=== PATIENT | male | born 1960 | race Caucasian/White ===

== ENCOUNTER 2017-02-23 17:27 | Day surgery (SDC) | payer BC, OTHER ==
--- NOTE | 2017-02-23 18:45 | EDM.PDOC ---
ED HPI GENERAL MEDICAL PROBLEM - General Chief Complaint: Abdominal Pain Stated Complaint: RT ABDOMINAL PAIN Time Seen by Provider: 02/23/17 18:15 Source of Information: Reports: Patient, Family History Limitations: Reports: No Limitations - History of Present Illness INITIAL COMMENTS - FREE TEXT/NARRATIVE: HISTORY AND PHYSICAL: History of present illness: [Patient comes to the emergency room complaining of right lower quadrant abdominal pain. States the pain woke him up at 1:00 this morning and has been gradually worsening throughout the day. Has had nausea throughout the day and been afraid to eat anything because he didn't want to vomit. Denies fever or chills. No sore throat or cough. No shortness of breath, chest pain, difficulty breathing. Has also had some abdominal discomfort around his bellybutton but is primarily to his right lower quadrant. Denies any burning with urination and hematuria. No change in his bowel or bladder. No diarrhea or constipation. Complained of pain while riding as a passenger in the car while his was driving, the bumps in the road increased the pain to his right lower abdomen. Has not taken any medication for his symptoms.] Review of systems: As per history of present illness and below otherwise all systems reviewed and negative. Past medical history: As per history of present illness and as reviewed below otherwise noncontributory. Surgical history: As per history of present illness and as reviewed below otherwise noncontributory. Social history: No reported history of drug or alcohol abuse. Family history: As per history of present illness and as reviewed below otherwise noncontributory. Physical exam: General: Well developed, well nourished male in no acute distress. HEENT: Atraumatic, normocephalic. Oral mucous membranes are pink and moist. Neck supple, no lymphadenopathy.. Lungs: Clear to auscultation, breath sounds equal bilaterally. Heart: S1S2, regular rate and rhythm. Abdomen: Bowel sounds are normoactive throughout. Abdomen is obese, which makes examination suboptimal. Mildly distended. Tender w/ palpation over RLQ. Otherwise, nontender. + rebound. Negative for costovertebral tenderness. Pelvis: Stable nontender. Genitourinary: Deferred. Rectal: Deferred. Extremities: Atraumatic, negative for cords or calf pain. No cyanosis or edema to feet or lower legs. Neurovascular unremarkable. Neuro: Awake, alert, oriented. Motor and sensory unremarkable throughout. Exam nonfocal. Diagnostics: [CBC, CMP, amylase, lipase, UA, lactic acid, CT abdomen and pelvis with contrast ] Therapeutics: [1 liter NS ] Impression: [acute appendicitis] Plan: [Patient continues to deny any significant pain and declined medication. White blood cell 14.10. Lactate 0.9. UA and CMP is normal. CT abd and pelvis w/ contrast shows an acute appendicitis w/o perforation or abscess formation. Dr. Sofia evaluates patient in ER and patient is in agreement to have surgery. Patient' s care turned over to Dr. Sofia. Definitive disposition and diagnosis as appropriate pending reevaluation and review of above. Right Lower Abdominal Pain Score (Numeric/FACES): 7 - Related Data Allergies Allergy/AdvReac Type Severity Reaction Status Date / Time No Known Allergies Allergy Verified 02/23/17 17:34 Home Meds: Home Meds . [No Known Home Meds] 02/23/17 [History] Past Medical History Respiratory History: Reports: Sleep Apnea Social & Family History - Family History Family Medical History: Noncontributory - Tobacco Use Smoking Status *Q: Former Smoker Years of Tobacco use: 25 Used Tobacco, but Quit: Yes Month Tobacco Last Used: December 2015 - Caffeine Use Caffeine Use: Reports: None - Recreational Drug Use Recreational Drug Use: No ED ROS GENERAL - Review of Systems Review Of Systems: ROS reveals no pertinent complaints other than HPI. ED EXAM, GI/ABD - Physical Exam Exam: See Below Course - Vital Signs Last Recorded V/S: Last Vital Signs Temp 98.1 F 02/23/17 20:25 Pulse 68 02/23/17 20:25 Resp 18 02/23/17 20:25 BP 132/74 02/23/17 20:25 Pulse Ox 97 02/23/17 20:25 - Orders/Labs/Meds Orders: Active Orders 24 hr Category Date Time Status Patient Status [ADT] Stat ADT 02/23/17 23:46 Ordered Abdomen Pelvis w Cont [CT] Stat Exams 02/23/17 21:03 Taken Labs: Laboratory Tests 02/23/17 02/23/17 02/23/17 Range/Units 18:25 18:51 18:51 WBC 14.10 H (4.0-11.0) K/uL RBC 5.05 (4.50-5.90) M/uL Hgb 14.0 (13.0-17.0) g/dL Hct 41.9 (38.0-50.0) % MCV 83.0 (80.0-98.0) fL MCH 27.7 (27.0-32.0) pg MCHC 33.4 (31.0-37.0) g/dL RDW Std Deviation 41.8 (28.0-62.0) fl RDW Coeff of Sandra 14 (11.0-15.0) % Plt Count 242 (150-400) K/uL MPV 9.50 (7.40-12.00) fL Neut % (Auto) 84.4 H (48.0-80.0) % Lymph % (Auto) 9.8 L (16.0-40.0) % [place] % (Auto) 5.5 (0.0-15.0) % Eos % (Auto) 0.2 (0.0-7.0) % Baso % (Auto) 0.1 (0.0-1.5) % Neut # (Auto) 11.9 H (1.4-5.7) K/uL Lymph # (Auto) 1.4 (0.6-2.4) K/uL [place] # (Auto) 0.8 (0.0-0.8) K/uL Eos # (Auto) 0.0 (0.0-0.7) K/uL Baso # (Auto) 0.0 (0.0-0.1) K/uL Nucleated RBC % 0.0 /100WBC Nucleated RBCs # 0 K/uL Lactate 0.9 (0.20-2.00) mmol/L Sodium (136-146) mmol/L Potassium (3.5-5.1) mmol/L Chloride (98-110) mmol/L Carbon Dioxide (21-31) mmol/L BUN (6.0-23.0) mg/dL Creatinine (0.6-1.5) mg/dL Est Cr Clr Drug Dosing mL/min Estimated GFR (MDRD) ml/min Glucose (60-110) mg/dL Calcium (8.8-10.8) mg/dL Total Bilirubin (0.1-1.5) mg/dL AST (5-40) IU/L ALT (8-54) IU/L Alkaline Phosphatase (40-150) Total Protein (6.0-8.0) g/dL Albumin (3.5-5.0) g/dL Globulin (2.0-3.5) g/dL Albumin/Globulin Ratio (1.3-2.8) Amylase (10-90) U/L Lipase (7-80) U/L Urine Color YELLOW Urine Appearance CLEAR Urine pH 7.0 (5.0-8.0) Ur Specific [place] 1.020 (1.001-1.035) Urine Protein NEGATIVE (NEGATIVE) mg/dL Urine Glucose (UA) NEGATIVE (NEGATIVE) mg/dL Urine Ketones 15 H (NEGATIVE) mg/dL Urine Occult Blood NEGATIVE (NEGATIVE) Urine Nitrite NEGATIVE (NEGATIVE) Urine Bilirubin NEGATIVE (NEGATIVE) Urine Urobilinogen 1.0 (<2.0) EU/dL Ur Leukocyte Esterase NEGATIVE (NEGATIVE) Urine RBC NONE SEEN (0-2/HPF) Urine WBC 0-1 (0-5/HPF) Ur Epithelial Cells RARE (NONE-FEW) Amorphous Sediment RARE (NEGATIVE) Urine Bacteria RARE (NEGATIVE) 02/23/17 Range/Units 18:51 WBC (4.0-11.0) K/uL RBC (4.50-5.90) M/uL Hgb (13.0-17.0) g/dL Hct (38.0-50.0) % MCV (80.0-98.0) fL MCH (27.0-32.0) pg MCHC (31.0-37.0) g/dL RDW Std Deviation (28.0-62.0) fl RDW Coeff of Sandra (11.0-15.0) % Plt Count (150-400) K/uL MPV (7.40-12.00) fL Neut % (Auto) (48.0-80.0) % Lymph % (Auto) (16.0-40.0) % [place] % (Auto) (0.0-15.0) % Eos % (Auto) (0.0-7.0) % Baso % (Auto) (0.0-1.5) % Neut # (Auto) (1.4-5.7) K/uL Lymph # (Auto) (0.6-2.4) K/uL [place] # (Auto) (0.0-0.8) K/uL Eos # (Auto) (0.0-0.7) K/uL Baso # (Auto) (0.0-0.1) K/uL Nucleated RBC % /100WBC Nucleated RBCs # K/uL Lactate (0.20-2.00) mmol/L Sodium 138 (136-146) mmol/L Potassium 4.0 (3.5-5.1) mmol/L Chloride 106 (98-110) mmol/L Carbon Dioxide 23 (21-31) mmol/L BUN 14 (6.0-23.0) mg/dL Creatinine 0.9 (0.6-1.5) mg/dL Est Cr Clr Drug Dosing 96.88 mL/min Estimated GFR (MDRD) > 60.0 ml/min Glucose 111 H (60-110) mg/dL Calcium 9.1 (8.8-10.8) mg/dL Total Bilirubin 0.7 (0.1-1.5) mg/dL AST 22 (5-40) IU/L ALT 36 (8-54) IU/L Alkaline Phosphatase 87 (40-150) Total Protein 7.1 (6.0-8.0) g/dL Albumin 4.1 (3.5-5.0) g/dL Globulin 3.0 (2.0-3.5) g/dL Albumin/Globulin Ratio 1.4 (1.3-2.8) Amylase 42 (10-90) U/L Lipase 13 (7-80) U/L Urine Color Urine Appearance Urine pH (5.0-8.0) Ur Specific [place] (1.001-1.035) Urine Protein (NEGATIVE) mg/dL Urine Glucose (UA) (NEGATIVE) mg/dL Urine Ketones (NEGATIVE) mg/dL Urine Occult Blood (NEGATIVE) Urine Nitrite (NEGATIVE) Urine Bilirubin (NEGATIVE) Urine Urobilinogen (<2.0) EU/dL Ur Leukocyte Esterase (NEGATIVE) Urine RBC (0-2/HPF) Urine WBC (0-5/HPF) Ur Epithelial Cells (NONE-FEW) Amorphous Sediment (NEGATIVE) Urine Bacteria (NEGATIVE) Meds: Medications Discontinued Medications Generic Name Dose Route Start Last Admin Trade Name Freq PRN Reason Stop Dose Admin Iopamidol 100 ml 02/23/17 21:17 02/23/17 21:27 Isovue Multipack-370 (76%) IVPUSH 02/23/17 21:18 100 ml ONETIME STA Administration Departure - Departure Time of Disposition: 23:50 Disposition: Still A Patient 30 Condition: Good Clinical Impression: Appendicitis - Discharge Information - My Orders Last 24 Hours: My Active Orders 02/23/17 21:03 Abdomen Pelvis w Cont [CT] Stat 02/23/17 23:46 Patient Status [ADT] Stat - Assessment/Plan Last 24 Hours: My Active Orders 02/23/17 21:03 Abdomen Pelvis w Cont [CT] Stat 02/23/17 23:46 Patient Status [ADT] Stat
[2017-02-23 19:21] LABS: CHLORIDE,CL 106 mmol/L (98-110); SODIUM,NA 138 mmol/L (136-146)
[2017-02-23] MEDS ORDERED: Iopamidol 755 MG/ML 500 ML Multipack Bottle IVPUSH STA (21:17)
[2017-02-23] MEDS ORDERED: cefOXitin 2 GM in Premix Bag 1 BAG IV ONE (23:54)
[2017-02-23] MEDS ORDERED: Lactated Ringers 1,000 ML IV SCH (23:57)
--- NOTE | 2017-02-24 | PCM.SN ---
- Free Text/Narrative Note: Long discussion w pt re open vs lap appendectomy; pt decided to have surgery here; pt have been told, there is a hi chance of open appendectomy for him because of his bmi of 47.3, and also his 27 pack years of smoking, quit last year, he may not be able to extubate right after surgery; pt voiced understanding, and proceed; other risks and benefits, bleeding/infection/damage to nearby organs; pt concurs and proceed with surgery
[2017-02-24] MEDS ORDERED: Bupivacaine 0.25%/EPINEPHrine 1:200,000 10 ML SDV ONE (00:28)
--- NOTE | 2017-02-24 00:28 | PCM.PREANE ---
Preanesthetic Assessment - Anesthesia/Transfusion/Family Hx Anesthesia History: No Prior Anesthesia Family History of Anesthesia Reaction: No Transfusion History: No Prior Transfusion(s) - Review of Systems General: Fever, Fatigue, Other (abdominal pain) Pulmonary: No Symptoms Cardiovascular: No Symptoms Gastrointestinal: No Symptoms Neurological: No Symptoms Other: Reports: None - Physical Assessment NPO Status Date: 02/23/17 NPO Status Time: 18:00 (water - last food 0600) O2 Sat by Pulse Oximetry: 95 Respiratory Rate: 20 Vital Signs: Last Vital Signs Temp 98.5 F 02/24/17 00:18 Pulse 66 02/24/17 00:18 Resp 20 02/24/17 00:18 BP 116/63 02/24/17 00:18 Pulse Ox 95 02/24/17 00:18 Height: 5 ft 10 in Weight: 330 lb ASA Class: 3 Mental Status: Alert & Oriented x3 Airway Class: Mallampati = 2 Dentition: Reports: Missing Tooth/Teeth (upper x2) Thyro-Mental Finger Breadths: 3 Mouth Opening Finger Breadths: 3 (narrow mouth) ROM/Head Extension: Limited/Partial (fat pad behind neck limits extension) Lungs: Clear to Auscultation, Normal Respiratory Effort Cardiovascular: Regular Rate, Regular Rhythm - Lab Values: Laboratory Last Values WBC 14.10 K/uL (4.0-11.0) H 02/23/17 18:51 RBC 5.05 M/uL (4.50-5.90) 02/23/17 18:51 Hgb 14.0 g/dL (13.0-17.0) 02/23/17 18:51 Hct 41.9 % (38.0-50.0) 02/23/17 18:51 MCV 83.0 fL (80.0-98.0) 02/23/17 18:51 MCH 27.7 pg (27.0-32.0) 02/23/17 18:51 MCHC 33.4 g/dL (31.0-37.0) 02/23/17 18:51 RDW Std Deviation 41.8 fl (28.0-62.0) 02/23/17 18:51 RDW Coeff of Sandra 14 % (11.0-15.0) 02/23/17 18:51 Plt Count 242 K/uL (150-400) 02/23/17 18:51 MPV 9.50 fL (7.40-12.00) 02/23/17 18:51 Neut % (Auto) 84.4 % (48.0-80.0) H 02/23/17 18:51 Lymph % (Auto) 9.8 % (16.0-40.0) L 02/23/17 18:51 [place] % (Auto) 5.5 % (0.0-15.0) 02/23/17 18:51 Eos % (Auto) 0.2 % (0.0-7.0) 02/23/17 18:51 Baso % (Auto) 0.1 % (0.0-1.5) 02/23/17 18:51 Neut # (Auto) 11.9 K/uL (1.4-5.7) H 02/23/17 18:51 Lymph # (Auto) 1.4 K/uL (0.6-2.4) 02/23/17 18:51 [place] # (Auto) 0.8 K/uL (0.0-0.8) 02/23/17 18:51 Eos # (Auto) 0.0 K/uL (0.0-0.7) 02/23/17 18:51 Baso # (Auto) 0.0 K/uL (0.0-0.1) 02/23/17 18:51 Nucleated RBC % 0.0 /100WBC 02/23/17 18:51 Nucleated RBCs # 0 K/uL 02/23/17 18:51 Lactate 0.9 mmol/L (0.20-2.00) 02/23/17 18:51 Sodium 138 mmol/L (136-146) 02/23/17 18:51 Potassium 4.0 mmol/L (3.5-5.1) 02/23/17 18:51 Chloride 106 mmol/L (98-110) 02/23/17 18:51 Carbon Dioxide 23 mmol/L (21-31) 02/23/17 18:51 BUN 14 mg/dL (6.0-23.0) 02/23/17 18:51 Creatinine 0.9 mg/dL (0.6-1.5) 02/23/17 18:51 Est Cr Clr Drug Dosing 96.88 mL/min 02/23/17 18:51 Estimated GFR (MDRD) > 60.0 ml/min 02/23/17 18:51 Glucose 111 mg/dL (60-110) H 02/23/17 18:51 Calcium 9.1 mg/dL (8.8-10.8) 02/23/17 18:51 Total Bilirubin 0.7 mg/dL (0.1-1.5) 02/23/17 18:51 AST 22 IU/L (5-40) 02/23/17 18:51 ALT 36 IU/L (8-54) 02/23/17 18:51 Alkaline Phosphatase 87 (40-150) 02/23/17 18:51 Total Protein 7.1 g/dL (6.0-8.0) 02/23/17 18:51 Albumin 4.1 g/dL (3.5-5.0) 02/23/17 18:51 Globulin 3.0 g/dL (2.0-3.5) 02/23/17 18:51 Albumin/Globulin Ratio 1.4 (1.3-2.8) 02/23/17 18:51 Amylase 42 U/L (10-90) 02/23/17 18:51 Lipase 13 U/L (7-80) 02/23/17 18:51 Urine Color YELLOW 02/23/17 18:25 Urine Appearance CLEAR 02/23/17 18:25 Urine pH 7.0 (5.0-8.0) 02/23/17 18:25 Ur Specific [place] 1.020 (1.001-1.035) 02/23/17 18:25 Urine Protein NEGATIVE mg/dL (NEGATIVE) 02/23/17 18:25 Urine Glucose (UA) NEGATIVE mg/dL (NEGATIVE) 02/23/17 18:25 Urine Ketones 15 mg/dL (NEGATIVE) H 02/23/17 18:25 Urine Occult Blood NEGATIVE (NEGATIVE) 02/23/17 18:25 Urine Nitrite NEGATIVE (NEGATIVE) 02/23/17 18:25 Urine Bilirubin NEGATIVE (NEGATIVE) 02/23/17 18:25 Urine Urobilinogen 1.0 EU/dL (<2.0) 02/23/17 18:25 Ur Leukocyte Esterase NEGATIVE (NEGATIVE) 02/23/17 18:25 Urine RBC NONE SEEN (0-2/HPF) 02/23/17 18:25 Urine WBC 0-1 (0-5/HPF) 02/23/17 18:25 Ur Epithelial Cells RARE (NONE-FEW) 02/23/17 18:25 Amorphous Sediment RARE (NEGATIVE) 02/23/17 18:25 Urine Bacteria RARE (NEGATIVE) 02/23/17 18:25 - Allergies Allergies/Adverse Reactions: Allergies Allergy/AdvReac Type Severity Reaction Status Date / Time No Known Allergies Allergy Verified 02/23/17 17:34 - Blood Blood Available: No Product(s) Available: None - Anesthesia Plan Free Text/Narrative:: GETA - Acknowledgements Anesthesia Type Planned: General Anesthesia Pt an Appropriate Candidate for the Planned Anesthesia: Yes Alternatives and Risks of Anesthesia Discussed w Pt/Guardian: Yes Pt/Guardian Understands and Agrees with Anesthesia Plan: Yes PreAnesthesia Questionnaire Respiratory History: Reports: Sleep Apnea (has been wearing CPAP for last 6 months) Musculoskeletal History: Reports: Other (See Below) (Back pain) Endocrine/Metabolic History: Reports: Obesity/BMI 30+ - SUBSTANCE USE Smoking Status *Q: Former Smoker (quit 1 year ago) Recreational Drug Use History: No - HOME MEDS Home Medications: Home Meds . [No Known Home Meds] 02/23/17 [History] - CURRENT (IN HOUSE) MEDS Current Meds: Current Medications Lactated Ringer's (Ringers, Lactated) 1,000 mls @ 125 mls/hr IV ASDIRECTED CORDELL Discontinued Medications Cefoxitin Sodium 2 gm/ Premix 50 mls @ 100 mls/hr IV ONETIME ONE Stop: 02/24/17 00:23 Iopamidol (Isovue Multipack-370 (76%)) 100 ml IVPUSH ONETIME STA Stop: 02/23/17 21:18 Last Admin: 02/23/17 21:27 Dose: 100 ml
[2017-02-24] MEDS ORDERED: Propofol 200 MG/20 ML SDV ONE (00:37)
[2017-02-24] MEDS ORDERED: Lidocaine 2% 5 ML SDV ONE (00:37)
[2017-02-24] MEDS ORDERED: Ondansetron 4 MG/2 ML SDV ONE (00:37)
[2017-02-24] MEDS ORDERED: Midazolam 1 MG/ML 2 ML SDV ONE (00:37)
[2017-02-24] MEDS ORDERED: fentaNYL 250 MCG/5 ML SDV ONE (00:37)
[2017-02-24] MEDS ORDERED: Succinylcholine/Normal Saline 200 MG/10 ML Syringe ONE (00:39)
[2017-02-24] MEDS ORDERED: Phenylephrine/Normal Saline 100 MCG/ML 10 ML Syringe ONE (01:26)
[2017-02-24] MEDS ORDERED: Ketorolac 30 MG/ML SDV ONE (02:29)
[2017-02-24] MEDS ORDERED: Octyl 2-Cyanoacrylate 1 Tube ONE (02:32)
[2017-02-24] MEDS ORDERED: Neostigmine Methylsulfate 1 MG/ML 5 ML Syringe ONE (02:32)
--- NOTE | 2017-02-24 02:56 | PCM.OPNOTE ---
- General Post-Op/Procedure Note Date of Surgery/Procedure: 02/24/17 Operative Procedure(s): lap appendectomy Findings: appendicitis suppurativa, no gross perforation; [id number] Pre Op Diagnosis: acute appendicitis Post-Op Diagnosis: Same Anesthesia Technique: General ET Tube Primary Surgeon: Ronnie Sofia Pathology: sent Complications: None Condition: Fair
[2017-02-24] MEDS ORDERED: Ondansetron 4 MG/2 ML SDV IVPUSH PRN (02:58)
[2017-02-24] MEDS ORDERED: Acetaminophen/oxyCODONE 325-7.5 MG Tab PO PRN (02:58)
[2017-02-24] MEDS ORDERED: Lactated Ringers 1,000 ML IV SCH (03:00)
--- NOTE | 2017-02-24 03:14 | PCM.POSTAN ---
POST ANESTHESIA ASSESSMENT - MENTAL STATUS Mental Status: Alert, Oriented - VITAL SIGNS Pulse Rate: 66 SaO2: 93 Blood Pressure: 144/74 - RESPIRATORY Respiratory Status: Respiratory Rate WNL, Airway Patent, O2 Saturation Stable, Supplemental Oxygen - CARDIOVASCULAR CV Status: Pulse Rate WNL, Blood Pressure Stable - GASTROINTESTINAL GI Status: No Symptoms - PAIN Pain Score: 0 - POST OP HYDRATION Hydration Status: Adequate & Stable - OBSERVATIONS Free Text/Narrative:: Pt awake and alert with CPAP with settings of presure: 8 and FiO2: 50%. Pt nods that he is comfortable. VSS. No nausea at this time.
--- NOTE | 2017-02-24 03:41 | OR ---
SURGEON: Ronnie Sofia MD DATE OF PROCEDURE: 02/24/2017 PREOPERATIVE DIAGNOSIS: Acute appendicitis. POSTOPERATIVE DIAGNOSIS: Acute appendicitis. PROCEDURE PERFORMED: Laparoscopic appendectomy. COMPLICATIONS: None. FINDINGS: The patient is with BMI of 47.3 and weight 350 pounds, which makes the surgery quite challenging and fortunately, his subcutaneous fat is very little, so trocar is long enough. Appendicitis suppurativa and foul purulent material and not grossly ruptured. Peritoneal fluid is pretty yellow and green consistent with possible infection from the appendicitis, and the patient has bilateral inguinal hernia and also umbilical hernia from CAT scan. DESCRIPTION OF PROCEDURE: The patient was taken to the operating room and placed in the supine position. Following induction of general endotracheal anesthesia, the patient's abdomen was prepped and draped in the sterile fashion. A time-out has been called. The patient was identified. The procedure was identified. The antibiotics were identified. The procedure then proceeded. The abdomen was prepped and draped in a standard fashion. After assessment of appropriate landmarks, a 12 millimeter trocar was inserted supraumbilically using Optiview and pneumoperitoneum was then achieved. This was followed with placement of 5 millimeter port in the right upper quadrant and another 5 millimeter port infraumbilically. The camera was inserted supraumbilical site and two laparoscopic Natasha retractors were then inserted through the other two sites. Following the cecum, the appendix was located. The appendix was then lifted up, and using a GI stapler the appendix was amputated at the base. And using the GI stapler, the mesoappendix was then amputated. The appendix was retrieved by an endoscopic bag and sent for pathologist. This was then followed by re-insertion of the camera to examine the staple line, and hemostasis. The trocars were then removed. The umbilical site was closed with 2-0 Vicryl deep stitch and 4 -0 Vicryl and dermabond; the other 2 5 mm port sites were closed with 4-0 Vicryl and dermabond. The patient was then awakened, extubated, and transferred to the recovery room in hemodynamically stable condition. Prior to closing, sponge count and instrument count was correct. Dr. Sofia was present throughout the whole procedure. INTRAOPERATIVE FINDINGS: The patient is with BMI of 47.3 and weight 350 pounds, which makes the surgery quite challenging and fortunately, his subcutaneous fat was very little so trocar was long enough. Appendicitis suppurativa and foul purulent material and not grossly ruptured. Peritoneal fluid was pretty yellow and green consistent with possible infection from the appendicitis, and the patient had bilateral inguinal hernia and also umbilical hernia from CAT scan. SUYAPA / MUSTAPHA /[id number]
[2017-02-24] MEDS: cefOXitin 1 GM in Premix Bag 1 BAG IV SCH ×2 (05:44→12:32)
--- NOTE | 2017-02-24 06:20 | CONS ---
DATE OF CONSULTATION: 02/23/2017 DATE OF : 1960 PRIMARY CARE PHYSICIAN: None PCP ER consult note. CONCERNING QUESTION: Acute appendicitis. HISTORY OF PRESENT ILLNESS: The patient is a 56-year-old, morbidly obese gentleman with BMI of 47.5, and seen in emergency room for 24 hours. He has acute onset of periumbilical pain migrated to the right side and subsequently workup included CAT scan, which revealed consistent acute appendicitis. No perforation or abscess. Surgery was then consulted. PAST MEDICAL HISTORY: Denies diabetic, ME, CVA, or hypertension. PAST SURGICAL HISTORY: None. The patient never had any surgery. FAMILY HISTORY: Noncontributory. SOCIAL HISTORY: The patient sometimes use some alcohol, and the patient has 27-pack year history of smoking and has quit for about a year. ALLERGIES: Refer to nursing notes for detail. MEDICATIONS: Refer to nursing notes for detail. PHYSICAL EXAMINATION: GENERAL: Very pleasant gentleman, even slowly ambulating in the dixon, in no acute distress. HEENT: Normocephalic and atraumatic. Sclerae anicteric. LUNGS: Clear to auscultation. HEART: Regular rate and rhythm. ABDOMEN: Protuberance and obese and exquisite tenderness in the right lower quadrant. No rebound tenderness. No Rovsing sign. LABORATORY DATA: Upon consult, white count is 14. IMPRESSION: Acute appendicitis, would benefit from timely surgical intervention and however because the patient has BMI of 47.3 and also 27-pack history of smoking, the patient may be a little too large for our instruments for laparoscopy and may revert to open the patient, and also after surgery postop, the patient may not be able to extubate. Those facts were presented to the patient and the patient is thinking about maybe trying to get a second opinion or have surgery. At the time of dictation, the patient is evaluating the option. I have assured the patient, we can do his surgery over here and at the same time, the outside hospital that I called in [place], they do not have particular long instrument either, but they may have ventilator after surgery, so it is some plus or minus and the patient is in the situation of deciding and will make a plan after getting back to the patient. SUYAPA / MUSTAPHA /[id number] MTDD
--- NOTE | 2017-02-24 09:45 | CT ---
EXAM DATE: 02/24/17 PATIENT'S AGE: 56 Patient: VONNIE PALACIOS Facility: [place], [place] Site . Site : 1960 Study: CT Abdomen/Pelvis -02/23/2017 9:46:06 PM Ordering Physician: Doctor Porter Final Report: INDICATION: RLQ PAIN SINCE EARLY AM TECHNIQUE: CT abdomen and pelvis acquired with IV contrast. COMPARISON: None FINDINGS: Lower chest: Unremarkable. Liver: Diffuse fatty infiltration of the liver. Spleen: Unremarkable. Pancreas: Unremarkable. Gallbladder and bile ducts: Unremarkable. Kidneys: 4 cm renal cyst within the mid pole of the left kidney. . Adrenal glands: Unremarkable. GI tract: Unremarkable. Dilated fluid filled appendix measuring up to 11 mm circumferential wall thickening and periappendiceal stranding. No evidence of perforation or abscess formation. . Vascular structures: Scattered atherosclerotic disease. No sign of aneurysm. Lymph nodes: Unremarkable. Miscellaneous: Left inguinal hernia. No free air or significant free fluid. Pelvic Organs: Unremarkable. Bones: Degenerative changes. IMPRESSION: Acute appendicitis with no evidence of perforation or abscess formation. Results called to Dr. Espinal at 2220 hours on February 23, 2017 Dictated by Mina Lopez MD @ 02/23/2017 10:20:52 PM Dictated by: Mina Lopez MD @ 02/23/2017 22:27:52 (Electronic Signature) Report Signed by Proxy. [facility]
--- NOTE | 2017-02-24 10:44 | PCM48HPAN ---
Post Anesthesia Note - EVALUATION WITHIN 48HRS OF ANESTHETIC Vital Signs in Normal Range: Yes Patient Participated in Evaluation: Yes Respiratory Function Stable: Yes Airway Patent: Yes Cardiovascular Function Stable: Yes Hydration Status Stable: Yes Pain Control Satisfactory: Yes Nausea and Vomiting Control Satisfactory: Yes Mental Status Recovered: Yes
[2017-02-24 13:00] VITALS: BP 121/69
== END 2017-02-24 13:20 | disposition home or self-care (01) ==
LOC: MW.ED 17:27 → MW.SDS 22:49 → UNDOADMOB 02-24 03:01 → MW.MS 02-24 03:01 → UNDODISOB 02-24 13:20 → MW.SDS 02-24 13:20
PROVIDERS: ATTEND Surgery
DX: K35.80 Unspecified acute appendicitis (principal); G47.30 Sleep apnea, unspecified; E66.9 Obesity, unspecified; Z68.42 Body mass index [BMI] 45.0-49.9, adult; Z79.899 Other long term (current) drug therapy
CPT/HCPCS: 36415; 44970; 74177; 80053; 81001; 82150; 83605; 83690; 85025; 88304; 93005; 94660; 96365; 99285; J0694; J1885; J2250; J2405; J3010; J7120; Q9967; 00750; 00840; 99283; A9270-GY; J2704